=== PATIENT | male | born 1975 | race Caucasian/White ===

== ENCOUNTER 2016-11-26 17:46 | Emergency (ER) | payer OTHER ==
[~2016-11-26] VITALS: Ht 177.8 cm; Wt 79.4 kg
[2016-11-26] MEDS ORDERED: LEXAPRO20 MG PO (18:11)
[2016-11-26] MEDS ORDERED: LISINOPRIL20 MG PO (18:11)
[2016-11-26] MEDS ORDERED: KLONOPIN0.5 MG PO (18:12)
[2016-11-26] MEDS ORDERED: PRILOSEC 10MG C10 MG PO (18:12)
[2016-11-26] MEDS ORDERED: LIPITOR 20 MG T20 M1 PO (18:12)
[2016-11-26] MEDS ORDERED: FLONASE 0.05%50 MCG NASAL (18:13)
[2016-11-26] MEDS ORDERED: IBUPROFEN 800800 M1 PO (19:37)
[2016-11-26 19:46] VITALS: BP 132/89
== END 2016-11-26 19:53 | disposition home or self-care (01) ==
LOC: ER 17:46
DX: S61.210A Laceration without foreign body of right index finger without damage to nail, initial encounter (principal); S61.212A Laceration without foreign body of right middle finger without damage to nail, initial encounter; F17.210 Nicotine dependence, cigarettes, uncomplicated; W23.0XXA Caught, crushed, jammed, or pinched between moving objects, initial encounter; Y93.89 Activity, other specified; Y92.89 Other specified places as the place of occurrence of the external cause; Y99.8 Other external cause status

== ENCOUNTER 2017-06-27 12:05 | Emergency (ER) | payer OTHER ==
[~2017-06-27] VITALS: Ht 177.8 cm; Wt 85.7 kg
--- NOTE | ~2017-06-27 | EKG ---
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
[~2017-06-27 12:05] MED LIST: FLONASE 0.05%50 MCG NASAL; IBUPROFEN 800800 M1 PO; KLONOPIN0.5 MG PO; LEXAPRO20 MG PO; LIPITOR 20 MG T20 M1 PO; LISINOPRIL20 MG PO; PRILOSEC 10MG C10 MG PO
[2017-06-27 12:30] VITALS: BP 159/103
[2017-06-27 13:27] LABS: AMP/METHAMP Negative (Negative); BARBITURATES Negative (Negative); BENZODIAZEPINES Negative (Negative); COCAINE Negative (Negative); METHADONE Negative (Negative); OPIATES Negative (Negative); PCP Negative (Negative)
[2017-06-27 13:31] LABS: ABSOLUTE NEUTROPHILS 7.4 thou/uL (1.4-8.2); BASOPHILS 0.8 % (0.0-2.0); EOSINOPHILS 0.2 % (0.0-3.0); HEMATOCRIT 45.3 % (42.0-52.0); LYMPHOCYTES 17.1 % (24.0-44.0); MCH 33.2 pg (26.0-34.0); MCHC 35.3 g/dL (28.0-37.0); MONOCYTES 4.8 % (1.0-8.0); PLATELET COUNT 266 thou/uL (150-400); POLYS 77.1 % (36.0-66.0); RBC 4.82 mil/uL (4.50-6.00); RDW 14.2 % (10.5-14.5); WBC 9.6 thou/uL (4.0-11.0)
[2017-06-27 13:47] LABS: ANION GAP 11 mmol/L (7-16); BUN 9 mg/dL (7-18); CALCIUM 8.7 mg/dL (8.5-10.1); CHLORIDE 104 mmol/L (98-107); CO2 30 mmol/L (21-32); CREATININE 0.8 mg/dL (0.7-1.3); GLUCOSE 98 mg/dL (74-106); POTASSIUM 3.3 mmol/L (3.5-5.1); SODIUM 145 mmol/L (136-145)
[2017-06-27 13:51] LABS: ALBUMIN 4.1 g/dL (3.4-5.0); SALICYLATE 3.9 mg/dL (2.8-20.0); SGOT 33 U/L (15-37); SGPT 37 U/L (30-65); TOTAL BILIRUBIN 0.4 mg/dL (<0.1-1.0); TOTAL PROTEIN 7.4 g/dL (6.4-8.2)
[2017-06-27 21:14] VITALS: BP 137/69
[2017-06-28 00:59] VITALS: BP 138/94
== END 2017-06-28 01:00 | disposition short-term general hospital (02) ==
LOC: ER 12:05 → EROBS 20:42 → ER 20:42 → EROBS 20:55 → 2N 20:55 → EROBS 22:24
PROVIDERS: Physician Assistant
DX: F10.129 Alcohol abuse with intoxication, unspecified (principal); R45.851 Suicidal ideations; E87.6 Hypokalemia

== ENCOUNTER → 2020-05-27 | Outpatient (CLI) | payer BC ==
[~2020-05-27] VITALS: Ht 177.8 cm; Wt 92.9 kg
[~2020-05-27] MED LIST changes: +CHLORTHALIDONE25 MG PO; +FLEXERIL PO; +HYDROCODON-ACE1 EAC7 PO; +HYDROXYZINE PAM25 M1 PO; +TRAZODONE HCL50 MG PO; +ULTRAM50 MG PO; +ZANAFLEX4 M1 PO
[2020-05-27 13:18] VITALS: BP 126/85
--- NOTE | 2020-05-27 13:20 | NUR ---
Pain Clinic Assessment: 1. History of Osteoarthritis: LUMBAR DDD History of Rheumatoid Arthritis: N/A 2. Height: 5 ft. 10 in. 177.8 cm. Weight: 204.8 lb. oz. 92.897 kg. Patient's BMI: 29.4 3. Vital Signs: BP: 126/85 Pulse: 103 Resp: 16 Temp: 02 Sat: 96 ECG Mon: 4. Pain Intensity: 8 5. Fall Risk: Dizziness: N Needs help standing or walking: N Fallen in the last 3 months: N Fall risk comments: 6. Patient on Blood Thinner: None 7. History of Hypertension: Y 8. Opioid Therapy greater than 6 weeks: N Opiate Contract Signed: 9. Risk Assessment Tool Provided: 11-HIGH 10. Functional Assessment Tool: / 11. Recreational Drug Use: Never Drug Type: Tobacco Use: Current Every Day Smoker Tobacco Type: Cigarettes Amount or Packs/day: 1/2 How Many Years: Alcohol Use: Past use Frequency: Quant:
--- NOTE | 2020-05-28 12:59 | HPC ---
[facility] [place] [address] PAIN MANAGEMENT CONSULTATION Name: ALMA TIM III Room #: REG AJAY MoraMarylu#: [id number] Admission: 05/27/20 Attend Phys: Nitin Rivera DO Discharge: Date of : 77 Report #: [id number] THIS REPORT FOR: cc: Braulio Alvares Steven F. DO Johnson, James E. DO ~ DATE OF SERVICE: 05/27/2020 REFERRING PHYSICIAN: TAMAR Barber CHIEF COMPLAINT: Low back pain, right lower extremity pain with paresthesias. HISTORY OF PRESENT ILLNESS: As you know, the patient is a 45-year-old male, reporting low back pain, right lower extremity pain that began in 2018. The patient describes no injury or trauma that may have led to symptom development. He reports his pain initially began as right foot numbness and tingling. Evaluation of the right foot and ankle revealed no significant pathology. It was determined during the evaluations that his symptoms would likely be from the lumbar spine and further imaging was obtained, which showed changes at the L5-S1 level consistent with the patient's distribution of pain. He has trialled conservative treatment, but has not noted significant pain improvement. He was referred to our clinic to discuss treatment options. He states that the pain he is experiencing on a daily basis is preventing him from going about his activities of daily living including gainful employment. He has been out of work for some time due to this ongoing pain. He is unable to do the lifting and twisting required from his job standpoint. He has been referred to our service to discuss treatment options for suspected lumbar radiculopathy. The patient indicates that his pain is continuous, describes the pain as beginning in the low back, radiating down the leg. Describes the pain as shooting, sharp, numbness and tingling, exacerbated with lifting, tends to be worse upon arising in the morning. Medications are the only thing have improved symptoms. He recently underwent MRI, which showed changes at the L5-S1 level that prompted the referral to our clinic. He wishes to review that as well today. PAST MEDICAL HISTORY: Dyslipidemia, alopecia, osteoarthritis, hypertension, hyperlipidemia, urethral restriction causing urinary difficulty, depression, anxiety. PAST SURGICAL HISTORY: Cholecystectomy, rhinoplasty, urethral surgery. SOCIAL HISTORY: The patient is a smoker. Denies IV or illicit drug use. Has a history of alcoholism, but has been sober for a period of time. He is working, not receiving workmen's compensation nor is he trying to obtain disability benefits. He is unaccompanied at today's visit. [address] [address] PAIN MANAGEMENT CONSULTATION Name: ALMA TIM III Room #: REG AJAY Luevano#: [id number] Admission: 05/27/20 Attend Phys: Nitin Rivera DO Discharge: Date of : 77 Report #: [id number] ALLERGIES: No known drug allergies. CURRENT MEDICATIONS: Lisinopril 20 mg once a day, escitalopram 20 mg once a day, omeprazole 10 mg once a day, atorvastatin 20 mg per day, fluticasone 2 sprays each nostril per day, ibuprofen 800 mg 3 times a day, chlorthalidone 25 mg once a day, hydroxyzine 25 mg once a day, trazodone 50 mg once a day, cyclobenzaprine 10 mg 3 times a day p.r.n., hydrocodone/acetaminophen 5/325 one tab every 4 hours p.r.n. for pain. IMAGING: MRI of lumbar spine obtained 05/20/2020 shows disk degeneration at the L2-L3, L3-L4, and L4-L5 levels. There is a small disk protrusion at the L3-L4 level on the left. There is marked disk narrowing, minimal anterolisthesis of L4 on L5, which results in right neural foraminal narrowing, moderate left neural foraminal narrowing. PHYSICAL EXAMINATION: VITAL SIGNS: Blood pressure 126/85, pulse 103, respiratory rate 16 and unlabored. The patient is 96% on room air. Height 5 feet 10 inches tall, weight 204.8 pounds, BMI calculated 29.4. GENERAL: Well-developed, well-nourished, well-hydrated 45-year-old male appearing stated age. He is placing current pain score at 8/10. HEENT: Normocephalic, atraumatic. Pupils equal, round, and reactive. NEUROLOGIC: Speech is fluent. The patient deemed a good historian. The patient is wearing a mask in compliance with COVID-19 regulations. LUNGS: Clear. No wheeze, rhonchi, no rales. CARDIOVASCULAR: Regular. No appreciable gallop, no rub. ABDOMEN: Soft, nontender, nondistended, normoactive bowel sounds. EXTREMITIES: Show no clubbing, no cyanosis. No appreciable edema. MUSCULOSKELETAL: Lower extremity strength equal and symmetrical 5/5, intact to light touch from L1 through S2 dermatomes. Seated straight leg raising negative. Supine straight leg raising positive on the right, negative on the left. Yessi's test negative. Modified Gaenslen's positive for axial low back pain. Ankle clonus negative. Babinski is negative. Gait is antalgic favoring right lower extremity over left. Stance is normal. ASSESSMENT: 1. Symptomatic lumbar radiculopathy. 2. Displacement of lumbar intervertebral disk with radiculopathy. 3. Lumbosacral spondylosis with radiculopathy. 4. Neural foraminal stenosis of the lumbar spine. 5. Chronic intractable pain. PLAN: 1. Based on today's physical exam and history the patient has provided the description the patient uses in regard to pain as well as location of symptoms, [facility] [address] [place] [address] PAIN MANAGEMENT CONSULTATION Name: ALMA TIM III Room #: [facility]#: [id number] Admission: 05/27/20 Attend Phys: Nitin Rivera DO Discharge: Date of : 77 Report #: [id number] likely source of the patient's pain is lumbar radiculopathy. We have discussed with the patient the findings of his MRI and correlated those to the findings of his physical exam. We have discussed with him the treatment options based on the presumptive diagnosis. The following was discussed with the patient on treatment options today. We discussed physical therapy, stretching exercise, core strengthening as a treatment option. We discussed medication management with suggestions of neuropathic pain medications and a consistent nonsteroidal anti-inflammatory. We discussed lumbar epidural injection under fluoroscopic guidance to address lumbar radicular symptoms directly. We also discussed spinal cord stimulator and ultimately surgical options. After reviewing the risks and benefits of all the proposed treatment options, the patient chose to begin with a lumbar epidural injection under fluoroscopic guidance. 2. The patient will establish an appointment tomorrow to undergo the first in a series of lumbar epidural injections. The patient needs to clear his schedule to be able to go home after the procedure and be able to rest and relax after the procedure was completed. He was unable to do so this evening. We will have him return tomorrow for the lumbar epidural injection in hopes of improving pain. He has made an appointment at 1230. 3. No medication changes made at today's visit. The patient will continue current medical therapy as prior prescribed. 4. We will have the patient return tomorrow for a lumbar epidural injection under fluoroscopic guidance to address lumbar radiculopathy. At that time, we also discussed options for treatment. Again, if the symptoms do not improve, the plan will be to have him return 31 days from the injection date to discuss efficacy of the injection itself. I have advised the patient if he does not note significant improvement for a prolonged period of time with the epidural injection to contact our clinic and we may make adjustments in medication at that time. 5. We wish to thank nurse practitioner, Leslie Mays for the opportunity to see this patient in consultation. We will keep you apprised of his response to treatment as we address lumbar radiculopathy. Again, we wish to thank you for the opportunity to see this patient in consultation. <ELECTRONICALLY SIGNED> By: Nitin Rivera DO 05/28/20 1259 [id number] Nitin Rivera DO /nt
== END ==
LOC: PAIN 06:50
PROVIDERS: ATTEND Anesthesiology Pain Medicine
DX: M51.37 Other intervertebral disc degeneration, lumbosacral region (principal); M47.26 Other spondylosis with radiculopathy, lumbar region; M48.061 Spinal stenosis, lumbar region without neurogenic claudication; M79.604 Pain in right leg; R20.2 Paresthesia of skin

== ENCOUNTER → 2020-06-11 | Outpatient (CLI) | payer BC ==
[~2020-06-11] VITALS: Ht 177.8 cm; Wt 92.5 kg
[~2020-06-11] MED LIST changes: +IBUPROFEN 200200 M1 PO; +NEURONTIN 300M300 M2 PO
--- NOTE | ~2020-06-11 | HPC ---
[facility] [place] [address] PAIN MANAGEMENT CONSULTATION Name: ALMA TIM III Room #: REG AJAY Bassem#: [id number] Admission: 06/11/20 Attend Phys: Nitin Rivera DO Discharge: Date of : 77 Report #: [id number] THIS REPORT FOR: cc: Braulio Alvares Steven F. DO Johnson,Nitin Hanna DO ~ DATE OF SERVICE: 06/11/2020 CHIEF COMPLAINT: Low back pain, right lower extremity pain and paresthesias. HISTORY OF PRESENT ILLNESS: As you know, the patient is a 45-year-old male, reporting low back pain, right lower extremity pain with paresthesias began in 2019, describes no injury or trauma that may have led to symptom development. He initially reported right foot numbness and tingling, which then progressed towards more low back pain and right lower extremity pain with paresthesias. He was seen in consultation per the request of primary care physician on 05/28/2020, diagnosed with lumbar radiculopathy secondary to the displacement of lumbar intervertebral disk, leading to neural foraminal stenosis. The patient was provided initial treatment with lumbar epidural injection under fluoroscopic guidance. Unfortunately, he reports only 20% improvement in overall pain and this was transient in nature. He returns today to discuss treatment options given the fact that his epidural injection provided no long-term benefit. He denies new injury or trauma or any changes in medical history since our visit of 05/28/2020. ALLERGIES: No known drug allergies. CURRENT MEDICATIONS: Lisinopril 20 mg once a day, escitalopram 20 mg per day, omeprazole 10 mg per day, atorvastatin 20 mg per day, fluticasone 2 sprays each nostril per day, ibuprofen 800 mg 3 times a day, chlorthalidone 25 mg once a day, hydroxyzine 25 mg once a day, trazodone 50 mg p.o. at bedtime, cyclobenzaprine 10 mg 3 times a day, hydrocodone/acetaminophen 5/325 one tab every 4 hours p.r.n. for pain. SOCIAL HISTORY: The patient is a smoker. Denies IV or illicit drug use. Has a history of alcoholism. He is off work currently. He is unaccompanied today. IMAGING: No new imaging available. PHYSICAL EXAMINATION: VITAL SIGNS: Blood pressure 132/94, pulse is 106, respiratory rate 18 and unlabored. The patient is 100% on room air. Height 5 feet 10 inches tall, weight 204 pounds, BMI calculated 29.3. GENERAL: Well-developed, well-nourished, well-hydrated 45-year-old male appearing stated age, pain is rated today 6/10. HEENT: Normocephalic, atraumatic. Pupils are round, [place] [address] PAIN MANAGEMENT CONSULTATION Name: ALMA TIM III Room #: REG [facility] Bassem#: [id number] Admission: 06/11/20 Attend Phys: Nitin Rivera DO Discharge: Date of : 77 Report #: [id number] Extraocular muscles are intact. The patient is wearing a mask in compliance with COVID-19 regulations. EXTREMITIES: Show no clubbing, no cyanosis, no edema. MUSCULOSKELETAL: Lower extremity strength remains symmetrical, 5/5. Seated straight leg raising negative. Supine straight leg raising positive on the right. Yessi's test is negative. Gait is mildly antalgic favoring right lower extremity. ASSESSMENT: 1. Symptomatic lumbar radiculopathy. 2. Displacement of lumbar intervertebral disk with radiculopathy. 3. Lumbosacral spondylosis with radiculopathy. 4. Neural foraminal stenosis of lumbar spine. 5. Chronic intractable pain. PLAN: 1. The patient returns today in followup visit, unfortunately noticing about 20% improvement in overall pain. He states that the symptom relief only lasted for approximately 2-3 days. We would not recommend any further epidural injections at this time, as his symptoms will not be amenable to further epidural injections given the lack of efficacy with this initial treatment. The patient and I did discuss that his third green party payer requires that he receives greater than 50% improvement in overall pain that is ongoing for the next in the series of epidural injections, the fact that he received minimal benefit and only transiently would indicate that more aggressive treatment options will be necessary. 2. The patient will be following up with his referring team to discuss surgical referral. He wishes to discuss this with Dr. Alvares. We did recommend a Neurosurgery consultation over an Orthopedic Spine consultation. I will defer to Dr. Alvares on where they wish this patient to be seen. We would recommend at this time having the patient seen by a nurse practitioner, which will allow the patient to be seen more rapidly and moved through the system more efficiently. 3. To assist in pain control, we will start the patient on gabapentin 300 mg dose. He will start at 1 tab 3 times a day for 3 nights, then increase to 1 tab in the morning, 1 tab at noon, 2 tablets at night for 3 nights, then 1 tab in the morning, 1 tab at noon, 3 tabs at night for 3 nights, then begin escalating in the morning up to 900 mg over a 9-day period. If no improvement in symptoms, no side effects, then increase to 900 mg 3 times a day. He was given a titration schedule in written form to follow. We are hopeful that the patient will see benefit with the medication and watch for side effects of sleepiness, disorientation, confusion, mental slowing with the therapy. If he notes the side effects, reduce the dose prior, contact our clinic and we will give direction for treatment with that medication. Prescription was sent to his local pharmacy with 2 refills, assuming good efficacy. 4. We wish to thank nurse practitioner, Leslie Mays and Dr. Braulio Alvares [address] [address] PAIN MANAGEMENT CONSULTATION Name: ALMA TIM III Room #: REG [facility] Bassem#: [id number] Admission: 06/11/20 Attend Phys: Nitin Rivera DO Discharge: Date of : 77 Report #: [id number] for the opportunity to see the patient in consultation. It is unfortunate that the patient did not see good benefit with the epidural injection provided at our first visit, but given the lack of efficacy he would not be allowed by his third green party payer to undergo the next in the series nor would it be recommended given the fact that he only received 2 days of improvement maximum. Again, we wish to thank you for the opportunity to see the patient in consultation. We will be available if you wish to discuss his case further. By: 1629 1822 Nitin Rivera DO /karl
[2020-06-11 13:49] VITALS: BP 132/94
--- NOTE | 2020-06-11 13:55 | NUR ---
Pain Clinic Assessment: 1. History of Osteoarthritis: LUMBAR DDD History of Rheumatoid Arthritis: N/A 2. Height: 5 ft. 10 in. 177.8 cm. Weight: 204.0 lb. oz. 92.534 kg. Patient's BMI: 29.3 3. Vital Signs: BP: 132/94 Pulse: 106 Resp: 18 Temp: 02 Sat: 100 ECG Mon: 4. Pain Intensity: 6 5. Fall Risk: Dizziness: N Needs help standing or walking: N Fallen in the last 3 months: N Fall risk comments: 6. Patient on Blood Thinner: None 7. History of Hypertension: Y 8. Opioid Therapy greater than 6 weeks: N Opiate Contract Signed: 9. Risk Assessment Tool Provided: 11-HIGH 10. Functional Assessment Tool: / 11. Recreational Drug Use: Never Drug Type: Tobacco Use: Current Every Day Smoker Tobacco Type: Cigarettes Amount or Packs/day: 1/2 PACK How Many Years: 1 Alcohol Use: Past use Frequency: Quant:
== END ==
LOC: PAIN 06:55
PROVIDERS: ATTEND Anesthesiology Pain Medicine
DX: M51.16 Intervertebral disc disorders with radiculopathy, lumbar region (principal); M47.27 Other spondylosis with radiculopathy, lumbosacral region; M48.061 Spinal stenosis, lumbar region without neurogenic claudication; G89.29 Other chronic pain; M79.604 Pain in right leg; R20.2 Paresthesia of skin

== ENCOUNTER → 2020-06-18 | Outpatient (CLI) | payer BC ==
[~2020-06-18] MED LIST changes: +AMOX TR-K CLV1 EAC3 PO; +AUGMENTIN 500-1 EACH PO; +AZITHROMYCIN 2250 MG PO; +CATAPRES0.1 MG PO; +CEFDINIR300 MG PO; +CHLORDIAZEPOXIDE5 M2 PO; +COLACE100 MG PO; +CYCLOBENZAPRINE10 MG PO; +HYDROXYZINE HCL25 M1 PO; +HYDROXYZINE HCL25 M2 PO; +LEXAPRO 10 MG T10 MG PO; +MAGIC MOUTHWASH BLM SWISH&SPIT; +NEURONTIN600 MG PO; +NORVASC10 MG PO; +OMEPRAZOLE 20 M20 M1 PO; +OMEPRAZOLE20 M1 PO; +PRENATAL PO; +PRINIVIL20 MG PO; +TRAMADOL 50 MG50 MG PO; +TRAZODONE HCL100 MG PO; +VITAMIN B-1100 M1 PO; +VITAMINC500 PO; +ZESTRIL40 MG PO
== END ==
LOC: RAD 13:32
PROVIDERS: ATTEND Nurse Practitioner Adult Health
DX: M48.061 Spinal stenosis, lumbar region without neurogenic claudication (principal); M43.16 Spondylolisthesis, lumbar region

== ENCOUNTER → 2020-10-01 | Outpatient (CLI) | payer OTHER | LOC: RAD 08:41 | DX: M51.36 Other intervertebral disc degeneration, lumbar region (principal); M43.16 Spondylolisthesis, lumbar region ==

== ENCOUNTER 2021-07-12 18:12 | Emergency (ER) | payer OTHER ==
[~2021-07-12] VITALS: Ht 177.8 cm; Wt 81.7 kg
[2021-07-12 18:13] VITALS: BP 122/75
[2021-07-12] MEDS ORDERED: AMOX TR-K CLV1 EAC4 PO (19:05)
[2021-07-12] MEDS ORDERED: TRAMADOL 50 MG50 MG PO (22:11)
== END 2021-07-12 19:13 | disposition home or self-care (01) ==
LOC: ER 18:12
DX: S61.210A Laceration without foreign body of right index finger without damage to nail, initial encounter (principal); F17.210 Nicotine dependence, cigarettes, uncomplicated; Z90.49 Acquired absence of other specified parts of digestive tract; Z98.890 Other specified postprocedural states; W54.0XXA Bitten by dog, initial encounter; Y93.89 Activity, other specified; Y92.89 Other specified places as the place of occurrence of the external cause; Y99.8 Other external cause status